=== PATIENT | female | born 1975 | race Caucasian/White ===

== ENCOUNTER 2016-09-08 12:55 | Emergency (ER) | payer BC | END 2016-09-08 14:50 | disposition left against medical advice (07) | LOC: UCCORT 12:55 | DX: R05 Cough (principal); J45.909 Unspecified asthma, uncomplicated; Z53.21 Procedure and treatment not carried out due to patient leaving prior to being seen by health care provider ==

== ENCOUNTER 2016-09-09 13:45 | Emergency (ER) | payer BC ==
[2016-09-09] MEDS ORDERED: Albuterol 2.5 MG/3 ML NEB.SOL* (0.083%) INH ONE (14:46)
--- NOTE | 2016-09-09 15:00 | UC ---
Respiratory Complaint HPI - HPI Summary HPI Summary: patient has hx of asthma. sinus symptoms, chest congestion and SOB. sore throat for 3 days as well. lip is tingling like a cold sore coming on - History of Current Complaint Chief Complaint: UCRespiratory Stated Complaint: UPPER RESPIRATORY Time Seen by Provider: 09/09/16 14:39 Hx Obtained From: Patient Hx Last Menstrual Period: 2003 ?: No Onset/Duration: Sudden Onset, Lasting Weeks Timing: Constant Severity Initially: Moderate Severity Currently: Severe Pain Intensity: 8 Pain Scale Used: 0-10 Numeric Character: Cough: Nonproductive Aggravating Factors: Exertion, Deep Breaths, Recumbent Position Alleviating Factors: Bronchodilator Associated Signs And Symptoms: Positive: Wheezing, URI, Sinus Discomfort - Allergies/Home Medications Allergies/Adverse Reactions: Allergies Allergy/AdvReac Type Severity Reaction Status Date / Time Erythromycin Allergy Mild Rash Verified 09/09/16 14:15 Penicillins Allergy Mild Rash Verified 09/09/16 14:15 Amoxicillin Allergy Rash Verified 09/09/16 14:15 Metronidazole [From Flagyl] Allergy SEVERE Verified 09/09/16 14:15 NAUSEA & VOMITING environmental Allergy Congestion Uncoded 09/09/16 14:16 LIQUID ADHESIVE Allergy Rash Uncoded 09/09/16 14:15 Home Medications: Home Medications Albuterol HFA INHALER* [Ventolin HFA Inhaler*] 2 puff INH SEE INSTRUCTIONS PRN 09/09/16 [History Confirmed 09/09/16] Fluticas/Salmet 230/21 HFA(NF) [Advair HFA 23O/21 (NF)] 2 puff INH BID 09/09/16 [History Confirmed 09/09/16] LevoCETirizine TAB (NF) [Xyzal TAB (NF)] 5 mg PO DAILY 09/09/16 [History Confirmed 09/09/16] PMH/Surg Hx/FS Hx/Imm Hx Previously Healthy: Yes Endocrine History Of: Reports: Thyroid Disease - thyroidectomy Denies: Diabetes Cardiovascular History Of: Denies: Cardiac Disorders, Hypertension, Pacemaker/ICD Respiratory History Of: Reports: Asthma Denies: COPD GI/ History Of: Denies: Ulcer, Renal Disease - Surgical History Surgical History: Yes Surgery Procedure, Year, and Place: hysterectomy. thyroidectomy- [facility]himotos. [facility]. BUNIONECTOMY- ALL HARD HUYNH REMOVED. GALLBLADDER. [facility] -EYE SURG - Family History Known Family History: Positive: Cardiac Disease, Hypertension, Diabetes - Social History Alcohol Use: Occasionally Alcohol Amount: few times a month Substance Use Type: None Smoking Status (MU): Never Smoked Tobacco - Immunization History Most Recent Influenza Vaccination: 04/2014 Most Recent Tetanus Shot: 2013 Review of Systems Constitutional: Negative Skin: Negative, Other - lip tingling Eyes: Negative ENT: Sore Throat, Nasal Discharge Respiratory: Shortness Of Breath, Cough Cardiovascular: Negative Gastrointestinal: Negative Genitourinary: Negative Motor: Negative Neurovascular: Negative Musculoskeletal: Negative Neurological: Negative Psychological: Negative All Other Systems Reviewed And Are Negative: Yes Physical Exam Triage Information Reviewed: Yes Appearance: Well-Nourished, Ill-Appearing, Pain Distress Vital Signs: Initial Vital Signs Temp 98.6 F 09/09/16 14:07 Pulse 91 09/09/16 14:07 Resp 22 09/09/16 14:07 BP 113/68 09/09/16 14:07 Pulse Ox 98 09/09/16 14:07 Vital Signs Reviewed: Yes Eye Exam: Normal Eyes: Positive: Conjunctiva Clear ENT: Positive: Pharyngeal erythema - with exudate, Nasal congestion, TMs normal Dental Exam: Normal Neck exam: Normal Neck: Positive: Supple, Nontender, No Lymphadenopathy Respiratory: Positive: Chest non-tender, No respiratory distress, No accessory muscle use, Stridor, Wheezing, Inspiration Cardiovascular Exam: Normal Cardiovascular: Positive: RRR, No Murmur, Pulses Normal Abdominal Exam: Normal Abdomen Description: Positive: Nontender, No Organomegaly, Soft Bowel Sounds: Positive: Present Musculoskeletal Exam: Normal Musculoskeletal: Positive: Strength Intact, ROM Intact, No Edema Neurological Exam: Normal Neurological: Positive: Alert, Muscle Tone Normal Psychological Exam: Normal Skin Exam: Normal UC Diagnostic Evaluation - Laboratory O2 Sat by Pulse Oximetry: 98 Respiratory Course/Dx - Course Course Of Treatment: hx obtained, exam performed, meds reviewed albuterol neb given with good results, prescriptions sent, strep test obtained and is negative. - Differential Dx/Diagnosis Differential Diagnosis/HQI/PQRI: Asthma, Bronchitis Provider Diagnoses: asthma. bronchitis Discharge - Discharge Plan Condition: Stable Disposition: HOME Prescriptions: predniSONE TAB* [Deltasone TAB*] 40 mg PO DAILY #10 tab Additional Instructions: take the medication as prescribed. FOllow up with any worsenign symptoms.
[2016-09-09 15:22] VITALS: BP 109/76
== END 2016-09-09 15:20 | disposition home or self-care (01) ==
LOC: UCCORT 13:45
DX: J45.909 Unspecified asthma, uncomplicated (principal); Z88.1 Allergy status to other antibiotic agents; Z88.0 Allergy status to penicillin; Z90.49 Acquired absence of other specified parts of digestive tract
CPT/HCPCS: 87651; 99212; G0463

== ENCOUNTER 2017-10-09 10:38 | Day surgery (SDC) | payer BC ==
[~2017-10-09 10:38] MED LIST: Buffered Lidocaine 0.9% SYRIN* 5 ML/SYR SYRINGE INTRADERM ONE; DiMENhydriNATE IV* 50 MG/ML VIAL IV PUSH PRN; Famotidine IV* 10 MG/ML 2 ML (20 mg) IV ONE; Morphine INJ* 2 MG/ML 1 ML CARPUJECT IV PRN; Naloxone* 0.4 MG/ML 1 ML VIAL IV PRN; PROCHLORPERAZINE INJ 5 MG/ML 2 ML VIAL IV PRN; fentaNYL* 50 MCG/ML 2 ML VIAL (100 MCG VIAL) IV PRN; oxyCODONE/Acetamin 5/325 MG* TAB PO PRN
[2017-10-09] MEDS ORDERED: Heparin VIAL(*) 5000 UNITS/ML VIAL (FIVE THOUSAND) ONE (11:06)
[2017-10-09] MEDS ORDERED: Famotidine IV* 10 MG/ML 2 ML (20 mg) ONE (11:06)
[2017-10-09] MEDS ORDERED: Clindamycin 900 MG IVPREMIX(* 900 MG/50 ML SDV IV ONE (11:06)
[2017-10-09] MEDS ORDERED: fentaNYL* 50 MCG/ML 2 ML VIAL (100 MCG VIAL) ONE (11:43)
[2017-10-09] MEDS ORDERED: Midazolam* 1 MG/ML 5 ML VIAL (5 MG) ONE (11:43)
[2017-10-09] MEDS ORDERED: Bupivacaine 0.25% SDV* 30 ML ONE (11:50)
[2017-10-09] MEDS ORDERED: Propofol* 10 MG/ML 20 ML BTL IV PUSH ONE (12:09)
[2017-10-09] MEDS ORDERED: Dexamethasone IV* 4 MG/ML 1 ML (4 MG) ONE ×2 (12:09→12:40)
[2017-10-09] MEDS ORDERED: Ketorolac INJ* 30 MG/ML 1 ML VIAL ONE (12:09)
[2017-10-09] MEDS ORDERED: Ondansetron INJ* 2 MG/ML VIAL ONE (12:09)
[2017-10-09 13:37] VITALS: BP 109/77
[2017-10-09] MEDS ORDERED: KETAMINE HCL* 50 MG/ML 10 ML VIAL ONE (13:44)
--- NOTE | 2017-10-10 11:10 | OP ---
DATE OF OPERATION: 10/09/17 - [facility] DATE OF : 71 SURGEON: Dada Rios DPM ANESTHESIA: MAC with local. PRE-OP DIAGNOSIS: Right foot lipoma. POST-OP DIAGNOSIS: Right foot lipoma. OPERATIVE PROCEDURE: Excision of right foot lipoma. ESTIMATED BLOOD LOSS: Less than 10 cc. IV FLUIDS: LR 1000 cc. DRAINS: None. SPECIMEN: Lipoma from the right foot. DESCRIPTION OF PROCEDURE: The patient was taken to the operating room and was placed in supine position. Time-out was called and OR team agreed. The right foot was then blocked with 10 cc of 1% lidocaine plain locally. The foot was then prepped and draped in a sterile manner. The right foot was then exsanguinated with an Esmarch bandage, and the cuff was then inflated to 250 mmHg. Attention was then paid to the medial aspect of the right foot. There was a 4 cm soft tissue mass that has been painful. It has been identified as the lipoma of the same size via MRI. I proceeded to make a linear incision right over the medial aspect of the arch. This was followed by sharp and blunt dissection of the skin and subcutaneous tissue. I was able to identify a 4 mm lipomatous mass right over the adductor hallucis muscle. It appears to be the plantar, most likely a soft tissue or a subcutaneous fat that has herniated into the medial vault pinching on the surrounding structures, namely the medial dorsal cutaneous as well as the saphenous cutaneous nerve as well as the overlying abductor hallucis muscle. I then proceeded to isolate the lipomatous mass and I excised it in its entirety. I proceeded to examine the area and found to be free of the soft tissue mass. Again, I irrigated the site , closed in a layered anatomical fashion. I deflated the cuff, injected the site with 10 cc of 0.25% Marcaine plain as well as 8 mg of dexamethasone phosphate. The foot was then placed in a dry sterile dressing. The patient was taken to recovery in stable condition as well as discharged in stable condition. [id number]/[facility] #: [id number] MTDFloyd
== END 2017-10-09 13:37 | disposition home or self-care (01) ==
LOC: OR 10:38
PROVIDERS: ATTEND Podiatrist
DX: D17.23 Benign lipomatous neoplasm of skin and subcutaneous tissue of right leg (principal); E03.9 Hypothyroidism, unspecified; J45.909 Unspecified asthma, uncomplicated
CPT/HCPCS: 88304; J1100; J1644; J1885; J2250; J2405; J2704; J3010

== ENCOUNTER 2018-03-04 19:41 | Emergency (ER) | payer BC ==
[2018-03-04 20:05] VITALS: BP 105/66
--- NOTE | 2018-03-04 20:21 | UC ---
Upper Extremity HPI - HPI Summary HPI Summary: Pain in left hand, increasing since a workout yesterday and today. Hx of osteopenia treated with calcium, and past fracture of the left fifth metacarpal. Now has ecchymosis and swelling ulnar border of wrist. - History of Current Complaint Chief Complaint: UCUpperExtremity Stated Complaint: LEFT HAND PAIN Time Seen by Provider: 03/04/18 20:12 Hx Obtained From: Patient Hx Last Menstrual Period: 2003 Onset/Duration: Sudden Onset, Lasting Days - 2 Severity Initially: Moderate Severity Currently: Moderate Pain Intensity: 4 Location Of Pain: Is Diffuse Character: Aching Aggravating Factor(s): Movement, Lifting Alleviating Factor(s): Ice Associated Signs And Symptoms: Positive: Swelling, Bruising Related History: Dominant Hand Right - Risk Factors Non-Orthopedic Risk Factor: Negative DVT Risk Factors: Negative Septic Arthritis Risk Factor: Negative - Allergies/Home Medications Allergies/Adverse Reactions: Allergies Allergy/AdvReac Type Severity Reaction Status Date / Time amoxicillin Allergy Rash Verified 03/04/18 19:56 erythromycin base Allergy Rash Verified 03/04/18 19:56 metronidazole [From Flagyl] Allergy severe n/v Verified 03/04/18 19:56 Penicillins Allergy Rash Verified 03/04/18 19:56 environmental Allergy Congestion Uncoded 03/04/18 19:56 LIQUID ADHESIVE Allergy Rash Uncoded 03/04/18 19:56 Home Medications: Home Medications Estradiol 1 tab QPM 03/04/18 [History Confirmed 03/04/18] Tiotropium CAP.INH* [Spiriva CAP.INH*] 1 inh QAM 03/04/18 [History Confirmed ] PMH/Surg Hx/FS Hx/Imm Hx Previously Healthy: Yes Endocrine History: Hypothyroidism, Other - osteopenia Other Endocrine History: osteopenia - Surgical History Surgical History: Yes Surgery Procedure, Year, and Place: hysterectomy, 2003, [facility] with emergency surgery for bleeding. thyroidectomy- hashimotos, 1995, [facility]. [facility]. BUNIONECTOMY- ALL HARD HUYNH REMOVED. GALLBLADDER, 2011, [facility]. lasik -EYE SURG, 2003. [place] foot, [facility] [place], [place]. LEFT hand 2 pins placed, [facility], 2016 - Family History Known Family History: Positive: Cardiac Disease, Hypertension, Diabetes, Other - osteoporosis - Social History Occupation: Employed Full-time Alcohol Use: Occasionally Alcohol Amount: 1-2 per week Substance Use Type: None Smoking Status (MU): Never Smoked Tobacco - Immunization History Most Recent Influenza Vaccination: 04/2014 Most Recent Tetanus Shot: 2013 Review of Systems Constitutional: Negative Skin: Negative Eyes: Negative ENT: Negative Respiratory: Negative Cardiovascular: Negative Gastrointestinal: Negative Genitourinary: Negative Motor: Negative Neurovascular: Negative Musculoskeletal: Arthralgia, Decreased ROM Neurological: Negative Psychological: Negative Is Patient Immunocompromised?: No All Other Systems Reviewed And Are Negative: Yes Physical Exam Triage Information Reviewed: Yes Appearance: Well-Appearing, Pain Distress - mild Vital Signs: Initial Vital Signs Temp 96.5 F 03/04/18 19:59 Pulse 75 03/04/18 19:59 Resp 16 03/04/18 19:59 BP 105/66 03/04/18 19:59 Pulse Ox 99 03/04/18 19:59 ENT Exam: Normal Respiratory: Positive: Lungs clear, Normal breath sounds Cardiovascular: Positive: RRR, No Murmur Musculoskeletal Exam: Other - erythema, mild swelling, early ecchymosis ulnar border of left wrist and hand. Musculoskeletal: Positive: ROM Limited @ - left wrist with decreased flexion and extension. Neurological: Positive: Alert, Muscle Tone Normal Psychological Exam: Normal Skin Exam: Normal Diagnostics - Laboratory Diagnostic Studies Completed/Ordered: xray left wrist with no fracture seen. Read by Aravind Greene, radiology read is pending. Upper Extremity Course/Dx - Course Course Of Treatment: splint, ice, nsaid's - Differential Dx/Diagnosis Differential Diagnosis/HQI/PQRI: Contusion, Fracture (Closed), Hematoma Provider Diagnoses: contusion/sprain left wrist. Discharge - Sign-Out/Discharge Documenting (check all that apply): Patient Departure All imaging exams completed and their final reports reviewed: No - Discharge Plan Condition: Stable Disposition: HOME Patient Education Materials: Wrist Sprain (ED) Referrals: Dedrick Louise MD [Primary Care Provider] - Additional Instructions: use splint for comfort, and ice the bruised area for 20 minutes about 3 times per day. Follow up with Dr. Louise for evaluation if pain continues as the bruising resolves, or if your range of motion is limited. - Billing Disposition and Condition Condition: STABLE Disposition: Home
--- NOTE | 2018-03-05 08:06 | RAD ---
HISTORY: pain and swelling ulnar border of wrist/hand COMPARISONS: May 14, 2016 VIEWS: 3 , Frontal, lateral, and oblique views of the left wrist FINDINGS: BONE DENSITY: Normal. BONES: There is no displaced fracture. 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 ALIGNMENT: There is no dislocation. SOFT TISSUES: Unremarkable. OTHER FINDINGS: None. IMPRESSION: NO ACUTE OSSEOUS INJURY. IF SYMPTOMS PERSIST, RECOMMEND REPEAT IMAGING. R0
--- NOTE | 2018-03-05 08:17 | UC ---
- Progress Note Progress Note: imaging reviewed no change Discharge - Sign-Out/Discharge Documenting (check all that apply): Post-Discharge Follow Up All imaging exams completed and their final reports reviewed: Yes - Discharge Plan Condition: Stable Disposition: HOME Patient Education Materials: Wrist Sprain (ED) Referrals: Dedrick Louise MD [Primary Care Provider] - Additional Instructions: use splint for comfort, and ice the bruised area for 20 minutes about 3 times per day. Follow up with Dr. Louise for evaluation if pain continues as the bruising resolves, or if your range of motion is limited. - Billing Disposition and Condition Condition: STABLE Disposition: Home
== END 2018-03-04 21:13 | disposition home or self-care (01) ==
LOC: UCCORT 19:41
DX: S60.212A Contusion of left wrist, initial encounter (principal); S63.502A Unspecified sprain of left wrist, initial encounter; X58.XXXA Exposure to other specified factors, initial encounter; Y93.9 Activity, unspecified; Y92.9 Unspecified place or not applicable; Z88.1 Allergy status to other antibiotic agents; Z88.0 Allergy status to penicillin
CPT/HCPCS: 99212; G0463

== ENCOUNTER 2018-05-21 16:38 | Emergency (ER) | payer BC ==
[2018-05-21 17:08] VITALS: BP 109/66
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
[2018-05-21] MEDS ORDERED: Ketorolac INJ* 60 MG/2 ML VIAL IM ONE (18:19)
== END 2018-05-21 18:36 | disposition home or self-care (01) ==
LOC: UCCORT 16:38
DX: S46.912A Strain of unspecified muscle, fascia and tendon at shoulder and upper arm level, left arm, initial encounter (principal); J45.909 Unspecified asthma, uncomplicated; Z88.0 Allergy status to penicillin; Z88.1 Allergy status to other antibiotic agents; Z88.8 Allergy status to other drugs, medicaments and biological substances; Z91.048 Other nonmedicinal substance allergy status; X50.0XXA Overexertion from strenuous movement or load, initial encounter; Y92.9 Unspecified place or not applicable
CPT/HCPCS: 96372; 99213; G0463; J1885

== ENCOUNTER 2019-04-10 13:41 | Emergency (ER) | payer BC ==
--- OUTSIDE RECORDS SUMMARY | 2019-04-10 14:49 | XMS REPORT | Continuity of Care Document ---
:1975 External Reference #:[id number] Author Name CARIE Ward Address [address] [place] [address] Care Team Providers Name Role Phone Dedrick Louise M.D. Care Team Information Coal Sampler [phone] Problems Active Problems Provider Date Uncomplicated moderate persistent CARIE Ward Onset: 01/21/2017 asthma Allergic rhinitis due to pollen CARIE Roman Onset: 2016 Allergic rhinitis due to animals CARIE Roman Onset: 2016 Moderate asthma Stacie Montero M.D. Onset: 07/15/2016 Toxic effect of venom of bees, Stacie Montero M.D. Onset: 07/15/2016 accidental (unintentional), initial encounter Allergic rhinitis Stacie Montero M.D. Onset: 07/15/2016 Social History Type Date Description Comments Sex Unknown ETOH Use Occasionally consumes alcohol ETOH Use Rarely consumes beer ETOH Use Occasionally consumes wine ETOH Use Occasionally consumes liquor Tobacco Use Start: Unknown Patient has never smoked Recreational Drug Use Denies Drug Use Recreational Drug Use Never Used Drugs Allergies, Adverse Reactions, Alerts Active Allergies Reaction Severity Comments Date Penicillin Urticaria 07/15/2016 Amoxicillin unknown reaction 07/15/2016 Erythromycin Urticaria 07/15/2016 Mastisol Urticaria, blisters 07/15/2016 Medications Active Medications SIG Qnty Indications Ordering Date Provider Auvi-Q use as directed. 4units J45.40 Isabela 11/06/2017 0.3mg/0.3ML Solution im. CARIE Daniels Auto-Inject Desloratadine 1 by mouth every 90tabs J45.40 Isabela 10/08/2017 5mg Tablets day CARIE Daniels Xolair Inject 1 Vial 3units Isabela 04/16/2017 150mg Solution Rec Under The Skin CARIE Daniels Every 4 Weeks Symbicort 2 inhalations 30.6gm Isabela 03/23/2017 160-4.5mcg/Act am&pm CARIE Daniels Aerosol Spiriva Respimat 2 puffs once 12gm J45.40 Isabela 03/20/2017 1.25mcg/Act daily CARIE Daniels Aerosol Albuterol Sulfate use every 4-6 75ml Isabela 02/11/2017 1.25mg/3ML hours as needed CARIE Daniels Nebulizer Pataday 1 drop both eyes 7.5ml J30.9 Isabela 07/15/2016 0.2% Solution as needed (CARIE Becker rxbin 823087, displayer merchandise ([id number]), rxpcn [facility], rxgrp: [id number], id: [id number] Proair HFA two inhalations 17gm Isabela 108(90Base) mcg/Act every 4 hours as CARIE Daniels Aerosol needed for cough, wheezing or chest tightness Hydrochlorothiazide as needed Unknown 25mg Tablets Estradiol take 1 tablet Unknown 0.5mg Tablets once daily Levothyroxine Sodium one tab daily Unknown 112mcg Tablets Medications Administered in Office Medication SIG Qnty Indications Ordering Provider Date Biologic Agent Administration CARIE Ward 02/17/2019 Injection Biologic Agent Administration CARIE Ward 01/14/2019 Injection Biologic Agent Administration CARIE Ward 12/16/2018 Injection Biologic Agent Administration CARIE Ward 11/19/2018 Injection Biologic Agent Administration Mariya Thurston M.D. 10/21/2018 Injection Biologic Agent Administration Isabela Uldrich, CENTRIFUGAL MACHINE TENDER-C 09/24/2018 Injection Biologic Agent Administration Isabela Uldrich, CENTRIFUGAL MACHINE TENDER-C 08/27/2018 Injection Biologic Agent Administration Isabela Uldrich, CENTRIFUGAL MACHINE TENDER-C 07/30/2018 Injection Biologic Agent Administration Isabela Uldrich, CENTRIFUGAL MACHINE TENDER-C 07/23/2018 Injection Biologic Agent Administration Isabela Uldrich, CENTRIFUGAL MACHINE TENDER-C 06/18/2018 Injection Biologic Agent Administration Isabela Uldrich, CENTRIFUGAL MACHINE TENDER-C 05/21/2018 Injection Biologic Agent Administration Isabela Uldrich, CENTRIFUGAL MACHINE TENDER-C 04/16/2018 Injection Biologic Agent Administration Stacie Montero M.D. 03/19/2018 Injection Biologic Agent Administration Isabela Uldrich, CENTRIFUGAL MACHINE TENDER-C 03/19/2018 Injection Biologic Agent Administration Isabela Uldrich, CENTRIFUGAL MACHINE TENDER-C 02/19/2018 Injection Biologic Agent Administration Isabela Uldrich, CENTRIFUGAL MACHINE TENDER-C 01/08/2018 Injection Biologic Agent Administration Isabela Uldrich, CENTRIFUGAL MACHINE TENDER-C 12/11/2017 Injection Biologic Agent Administration Isabela Uldrich, CENTRIFUGAL MACHINE TENDER-C 11/06/2017 Injection Biologic Agent Administration Isabela Uldrich, CENTRIFUGAL MACHINE TENDER-C 10/08/2017 Injection Biologic Agent Administration Mariya Thurston M.D. 09/10/2017 Injection Biologic Agent Administration Isabela Uldrich, CENTRIFUGAL MACHINE TENDER-C 08/14/2017 Injection Biologic Agent Administration Mariya Thurston M.D. 07/10/2017 Injection Biologic Agent Administration Stacie Montero M.D. 05/22/2017 Injection Biologic Agent Administration Isabela Uldrich, CENTRIFUGAL MACHINE TENDER-C 05/22/2017 Injection Injection Allergy Injection 03/04/2017 Injection Celestone/Cortisone Isabela Uldrich, CENTRIFUGAL MACHINE TENDER-C 01/21/2017 [id number] 1 cc Injection Injection Allergy Injection 01/21/2017 Injection Injection Allergy Injection 01/14/2017 Injection Injection Allergy Injection 01/07/2017 Injection Injection Allergy Injection 12/24/2016 Injection Injection Stacie Montero M.D. 12/17/2016 Injection Injection Allergy Injection 12/17/2016 Injection Injection Allergy Injection 12/10/2016 Injection Injection Allergy Injection 12/03/2016 Injection Injection Allergy Injection 11/19/2016 Injection Injection Allergy Injection 11/12/2016 Injection Injection Allergy Injection 11/05/2016 Injection Injection Allergy Injection 10/29/2016 Injection Immunizations CPT Code Status Date Vaccine Reaction Lot # 16831 Given Unknown Influenza Vaccine given on 03/2018 19434 Given Unknown Influenza Vaccine 60413 Given Unknown Influenza Vaccine 06398 Given Unknown Influenza Vaccine Vital Signs Date Vital Result Comment 02/17/2019 11:25am Height 68 inches 5'8" Weight 193.00 lb Weight 87.545 kg Respiratory Rate 18 /min Heart Rate 74 /min O2 % BldC Oximetry 97 % BP Systolic 120 mmHg BP Diastolic 80 mmHg Asthma Control Test 24 BMI (Body Mass Index) 29.3 kg/m2 01/14/2019 9:12am Height 68 inches 5'8" Weight 193.00 lb Weight 87.545 kg Respiratory Rate 16 /min Heart Rate 70 /min O2 % BldC Oximetry 96 % BP Systolic 93 mmHg BP Diastolic 60 mmHg BMI (Body Mass Index) 29.3 kg/m2 Results Description No Information Available Procedures Date Code Description Status 02/17/2019 22285 Biologic Agent Administration Completed 01/14/2019 59123 Biologic Agent Administration Completed 12/16/2018 07549 Biologic Agent Administration Completed 11/19/2018 03538 Biologic Agent Administration Completed 10/21/2018 67354 Biologic Agent Administration Completed 09/24/2018 34512 Biologic Agent Administration Completed 08/27/2018 29366 Biologic Agent Administration Completed 08/27/2018 14648 Nitric Oxide Gas Determination Completed Medical Devices Description No Information Available Encounters Description No Information Available Assessments Date Code Description Provider 02/17/2019 J45.40 Moderate persistent asthma, uncomplicated ANDREAS Ward-C 02/17/2019 J30.1 Allergic rhinitis due to pollen CARIE Ward 02/17/2019 J30.2 Other seasonal allergic rhinitis CARIE Ward 02/17/2019 J30.81 Allergic rhinitis due to animal (cat) (dog) CARIE Ward hair and dander 02/17/2019 J30.89 Other allergic rhinitis CARIE Ward 01/14/2019 J45.40 Moderate persistent asthma, uncomplicated Stacie Montero M.D. 01/14/2019 J45.40 Moderate persistent asthma, uncomplicated Isabela Ulich , CENTRIFUGAL MACHINE TENDER-C 01/14/2019 J30.1 Allergic rhinitis due to pollen Stacie Montero M.D. 01/14/2019 J30.1 Allergic rhinitis due to pollen Isabela Ulboni, CENTRIFUGAL MACHINE TENDER-C 01/14/2019 J30.2 Other seasonal allergic rhinitis Stacie Montero M.D. 01/14/2019 J30.2 Other seasonal allergic rhinitis Isabela Ulboni, CENTRIFUGAL MACHINE TENDER-C 01/14/2019 J30.81 Allergic rhinitis due to animal (cat) (dog) Stacie Montero M.D. hair and dander 01/14/2019 J30.81 Allergic rhinitis due to animal (cat) (dog) Isabela Frances, CENTRIFUGAL MACHINE TENDER-C hair and dander 01/14/2019 J30.89 Other allergic rhinitis Isabela Ulich, CENTRIFUGAL MACHINE TENDER-C 12/16/2018 J45.40 Moderate persistent asthma, uncomplicated Stacie Montero M.D. 12/16/2018 J45.40 Moderate persistent asthma, uncomplicated Stacie Montero M.D. 12/16/2018 J30.1 Allergic rhinitis due to pollen Stacie Montero M.D. 12/16/2018 J45.40 Moderate persistent asthma, uncomplicated Isabelaaugusta Daniels , CENTRIFUGAL MACHINE TENDER-C 12/16/2018 J30.2 Other seasonal allergic rhinitis Stacie Montero M.D. 12/16/2018 J30.1 Allergic rhinitis due to pollen Stacie Montero M.D. 12/16/2018 J30.81 Allergic rhinitis due to animal (cat) (dog) Stacie Montero M.D. hair and dander 12/16/2018 J30.1 Allergic rhinitis due to pollen Isabela Daniels, CENTRIFUGAL MACHINE TENDER-C 12/16/2018 J30.2 Other seasonal allergic rhinitis Isabela Frances, CENTRIFUGAL MACHINE TENDER-C 12/16/2018 J30.81 Allergic rhinitis due to animal (cat) (dog) Stacie Montero M.D. hair and dander 12/16/2018 J30.81 Allergic rhinitis due to animal (cat) (dog) Isabela Uldrich, CENTRIFUGAL MACHINE TENDER-C hair and dander 12/16/2018 J30.89 Other allergic rhinitis Isabela Uldrich, CENTRIFUGAL MACHINE TENDER-C 11/19/2018 J45.40 Moderate persistent asthma, uncomplicated Stacie Montero M.D. 11/19/2018 J45.40 Moderate persistent asthma, uncomplicated Isabela Uldrich , CENTRIFUGAL MACHINE TENDER-C 11/19/2018 J30.1 Allergic rhinitis due to pollen Stacie Montero M.D. 11/19/2018 J30.1 Allergic rhinitis due to pollen Isabela Uldrich, CENTRIFUGAL MACHINE TENDER-C 11/19/2018 J30.2 Other seasonal allergic rhinitis Stacie Montero M.D. 11/19/2018 J30.2 Other seasonal allergic rhinitis Isabela Uldrich, CENTRIFUGAL MACHINE TENDER-C 11/19/2018 J30.81 Allergic rhinitis due to animal (cat) (dog) Stacie Montero M.D. hair and dander 11/19/2018 J30.81 Allergic rhinitis due to animal (cat) (dog) Isabela Uldrich, CENTRIFUGAL MACHINE TENDER-C hair and dander 11/19/2018 J30.89 Other allergic rhinitis Isabela Uldrich, CENTRIFUGAL MACHINE TENDER-C 11/19/2018 J01.90 Acute sinusitis, unspecified Isabela Uldrich, CENTRIFUGAL MACHINE TENDER-C 10/21/2018 J45.40 Moderate persistent asthma, uncomplicated Mariya Thurston M.D. 10/21/2018 J30.1 Allergic rhinitis due to pollen Mariya Thurston M.D. 10/21/2018 J30.2 Other seasonal allergic rhinitis Mariya Thurston M.D. 09/24/2018 J30.81 Allergic rhinitis due to animal (cat) (dog) Stacie Montero M.D. hair and dander 09/24/2018 J30.81 Allergic rhinitis due to animal (cat) (dog) Isabela Uldrjohanny, CENTRIFUGAL MACHINE TENDER-C hair and dander 09/24/2018 J30.89 Other allergic rhinitis Stacie Montero M.D. 09/24/2018 J30.89 Other allergic rhinitis Isabela Uldrich, CENTRIFUGAL MACHINE TENDER-C 09/24/2018 J30.1 Allergic rhinitis due to pollen Stacie Montero M.D. 09/24/2018 J30.1 Allergic rhinitis due to pollen Isabela Uldrich, CENTRIFUGAL MACHINE TENDER-C 09/24/2018 J30.2 Other seasonal allergic rhinitis Stacie Montero M.D. 09/24/2018 J30.2 Other seasonal allergic rhinitis Isabela Uldrich, CENTRIFUGAL MACHINE TENDER-C 09/24/2018 J45.40 Moderate persistent asthma, uncomplicated Isabela Uldrich , CENTRIFUGAL MACHINE TENDER-C 08/27/2018 J01.90 Acute sinusitis, unspecified Stacie Montero M.D. 08/27/2018 J01.90 Acute sinusitis, unspecified Isabela Uldrich, CENTRIFUGAL MACHINE TENDER-C 08/27/2018 J30.81 Allergic rhinitis due to animal (cat) (dog) Stacie Montero M.D. hair and dander 08/27/2018 J30.81 Allergic rhinitis due to animal (cat) (dog) Isabela Uldrich, CENTRIFUGAL MACHINE TENDER-C hair and dander 08/27/2018 J30.89 Other allergic rhinitis Stacie Montero M.D. 08/27/2018 J30.89 Other allergic rhinitis Isabela Uldrich, CENTRIFUGAL MACHINE TENDER-C 08/27/2018 J30.1 Allergic rhinitis due to pollen Stacie Montero M.D. 08/27/2018 J30.1 Allergic rhinitis due to pollen Isabela Uldrich, CENTRIFUGAL MACHINE TENDER-C 08/27/2018 J30.2 Other seasonal allergic rhinitis Isabela Uldrich, CENTRIFUGAL MACHINE TENDER-C 08/27/2018 J45.40 Moderate persistent asthma, uncomplicated Isabela Uldrich , CENTRIFUGAL MACHINE TENDER-C Plan of Treatment Future Appointment(s):03/17/2019 3:00 pm - Mariya Thurston M.D. at [id number] - Isabelavalentina Daniels CENTRIFUGAL MACHINE TENDER-CJ45.40 Moderate persistent asthma, hnajohqbmdrnjN65.1 Allergic rhinitis due to vhbxtcV35.2 Other seasonal allergic vaxbbsizD46.81 Allergic rhinitis due to animal (cat) (dog) hair and dfxglwE85.89 Other allergic rhinitisRecommendations:Continue all medications as prescribed.Refrain from wearing perfumes/scented colognes while visitingour office. Continue the desloratadine 1 po daily. Ok for Xolair continue the Symbicort 2 puffs twice daily Continue the Spiriva 1 puff daily Xolair ( Omalizumab) is a recombinant humanized monoclonal antibody that inhibits the binding of circulating IgE to the high affinity IgE receptor on the surface of mast cells and basophils. Reduction in surface-bound IgE on the IgE receptor expressing cells limits the release of mediators in the allergic response. Xolair is indicated for patients with moderate-severe persistent asthma who have a positive skin test result to a perennial aeroallergen and whose symptoms are inadequately controlled with inhaled corticosteroids. Return in 4 weeks Functional Status Description No Information Available Mental Status Description No Information Available Referrals Description No Information Available
--- OUTSIDE RECORDS SUMMARY | 2019-04-10 14:49 | XMS REPORT | Continuity of Care Document ---
:1975 External Reference #:[id number] Author Name CARIE Ward Address [address] [place] [address] Care Team Providers Name Role Phone Dedrick Louise M.D. Care Team Information Fisheries Biologist [phone] Problems Active Problems Provider Date Uncomplicated moderate [...] 0.2% Solution as needed (CARIE Becker rxbin [id number], seed laboratory technician ([id number]), rxpc[facility], rxgrp: [id number], id: [id number] Proair HFA two inhalations 17gm Isabela 108(90Base) [...] 10/21/2018 Injection Biologic Agent Administration Isabela Uldrich, BUSINESS TEAM LEADER-C 09/24/2018 Injection Biologic Agent Administration Isabela Uldrich, BUSINESS TEAM LEADER-C 08/27/2018 Injection Biologic Agent Administration Isabela Uldrich, BUSINESS TEAM LEADER-C 07/30/2018 Injection Biologic Agent Administration Isabela Uldrich, BUSINESS TEAM LEADER-C 07/23/2018 Injection Biologic Agent Administration Isabela Uldrich, BUSINESS TEAM LEADER-C 06/18/2018 Injection Biologic Agent Administration Isabela Uldrich, BUSINESS TEAM LEADER-C 05/21/2018 Injection Biologic Agent Administration Isabela Uldrich, BUSINESS TEAM LEADER-C 04/16/2018 Injection Biologic Agent Administration Stacie Montero M.D. 03/19/2018 Injection Biologic Agent Administration Isabela Uldrich, BUSINESS TEAM LEADER-C 03/19/2018 Injection Biologic Agent Administration Isabela Uldrich, BUSINESS TEAM LEADER-C 02/19/2018 Injection Biologic Agent Administration Isabela Uldrich, BUSINESS TEAM LEADER-C 01/08/2018 Injection Biologic Agent Administration Isabela Uldrich, BUSINESS TEAM LEADER-C 12/11/2017 Injection Biologic Agent Administration Isabela Uldrich, BUSINESS TEAM LEADER-C 11/06/2017 Injection Biologic Agent Administration Isabela Uldrich, BUSINESS TEAM LEADER-C 10/08/2017 Injection Biologic Agent Administration Mariya Thurston M.D. 09/10/2017 Injection Biologic Agent Administration Isabela Uldrich, BUSINESS TEAM LEADER-C 08/14/2017 Injection Biologic Agent Administration Mariya Thurston M.D. 07/10/2017 Injection Biologic Agent Administration Stacie Montero M.D. 05/22/2017 Injection Biologic Agent Administration Isabela Uldrich, BUSINESS TEAM LEADER-C 05/22/2017 Injection Injection Allergy Injection 03/04/2017 Injection Celestone/Cortisone Isabela Uldrich, BUSINESS TEAM LEADER-C 01/21/2017 [id number] 1 cc Injection Injection Allergy Injection 01/21/2017 [...] Code Status Date Vaccine Reaction Lot # 83073 Given Unknown Influenza Vaccine given on 03/2018 75522 Given Unknown Influenza Vaccine 49333 Given Unknown Influenza Vaccine 03520 Given Unknown Influenza Vaccine Vital Signs Date Vital Result Comment 03/17/2019 2:56pm Height 68 inches 5'8" Respiratory Rate 18 /min Heart Rate 69 /min O2 % BldC Oximetry 95 % BP Systolic 109 mmHg BP Diastolic 66 mmHg Asthma Control Test 18 02/17/2019 11:25am Height 68 inches 5'8" Weight 193.00 lb Weight 87.545 kg Respiratory Rate 18 /min Heart Rate 74 /min O2 % BldC Oximetry 97 % BP Systolic 120 mmHg BP Diastolic 80 mmHg Asthma Control Test 24 BMI (Body Mass Index) 29.3 kg/m2 Results Description No Information Available Procedures Date Code Description Status 02/17/2019 32072 Biologic Agent Administration Completed 01/14/2019 30978 Biologic Agent Administration Completed 12/16/2018 79046 Biologic Agent Administration Completed 11/19/2018 74071 Biologic Agent Administration Completed 10/21/2018 07314 Biologic Agent Administration Completed 09/24/2018 60155 Biologic Agent Administration Completed Medical Devices Description No Information Available Encounters Description No Information Available Assessments Date Code Description Provider 03/17/2019 J45.40 Moderate persistent asthma, uncomplicated Isabela Daniels BUSINESS TEAM LEADER-C 03/17/2019 J30.1 Allergic rhinitis due to pollen Isabela Daniels BUSINESS TEAM LEADER-C 03/17/2019 J30.2 Other seasonal allergic rhinitis Isabela Daniels BUSINESS TEAM LEADER-C 03/17/2019 J30.81 Allergic rhinitis due to animal (cat) (dog) Isabela Daniels [facility] hair and dander 03/17/2019 J30.89 Other allergic rhinitis Isabela Daniels BUSINESS TEAM LEADER-C 02/17/2019 J45.40 Moderate persistent asthma, uncomplicated Stacie Montero M.D. 02/17/2019 J45.40 Moderate persistent asthma, uncomplicated Isabelaaugusta Daniels BUSINESS TEAM LEADER-C 02/17/2019 J30.1 Allergic rhinitis due to pollen Stacie Montero M.D. 02/17/2019 J30.1 Allergic rhinitis due to pollen Isabela Ulboni, BUSINESS TEAM LEADER-C 02/17/2019 J30.2 Other seasonal allergic rhinitis Stacie Montero M.D. 02/17/2019 J30.2 Other seasonal allergic rhinitis Isabela Uldrich, BUSINESS TEAM LEADER-C 02/17/2019 J30.81 Allergic rhinitis due to animal (cat) (dog) Stacie Montero M.D. hair and dander 02/17/2019 J30.81 Allergic rhinitis due to animal (cat) (dog) Isabela Uldrich, BUSINESS TEAM LEADER-C hair and dander 02/17/2019 J30.89 Other allergic rhinitis Stacie Montero M.D. 02/17/2019 J30.89 Other allergic rhinitis Isabela Uldrich, BUSINESS TEAM LEADER-C 01/14/2019 J45.40 Moderate persistent asthma, uncomplicated Stacie Montero M.D. 01/14/2019 J45.40 Moderate persistent asthma, uncomplicated Isabela Ulich , BUSINESS TEAM LEADER-C 01/14/2019 J30.1 Allergic rhinitis due to pollen Stacie Montero M.D. 01/14/2019 J30.1 Allergic rhinitis due to pollen Isabela Ulich, BUSINESS TEAM LEADER-C 01/14/2019 J30.2 Other seasonal allergic rhinitis Stacie Montero M.D. 01/14/2019 J30.2 Other seasonal allergic rhinitis Isabela Uldrich, BUSINESS TEAM LEADER-C 01/14/2019 J30.81 Allergic rhinitis due to animal (cat) (dog) Stacie Montero M.D. hair and dander 01/14/2019 J30.81 Allergic rhinitis due to animal (cat) (dog) Isabela Uldrich, BUSINESS TEAM LEADER-C hair and dander 01/14/2019 J30.89 Other allergic rhinitis Isabela Uldrich, BUSINESS TEAM LEADER-C 12/16/2018 J45.40 Moderate persistent asthma, uncomplicated Stacie Montero M.D. 12/16/2018 J45.40 Moderate persistent asthma, uncomplicated Stacie Montero M.D. 12/16/2018 J30.1 Allergic rhinitis due to pollen Stacie Montero M.D. 12/16/2018 J45.40 Moderate persistent asthma, uncomplicated Isabela Uldrich , BUSINESS TEAM LEADER-C 12/16/2018 J30.2 Other seasonal allergic rhinitis Stacie Montero M.D. 12/16/2018 J30.1 Allergic rhinitis due to pollen Stacie Montero M.D. 12/16/2018 J30.81 Allergic rhinitis due to animal (cat) (dog) Stacie Montero M.D. hair and dander 12/16/2018 J30.1 Allergic rhinitis due to pollen Isabela Uldrich, BUSINESS TEAM LEADER-C 12/16/2018 J30.2 Other seasonal allergic rhinitis Isabela Uldrich, BUSINESS TEAM LEADER-C 12/16/2018 J30.81 Allergic rhinitis due to animal (cat) (dog) Stacie Montero M.D. hair and dander 12/16/2018 J30.81 Allergic rhinitis due to animal (cat) (dog) Isabela Uldrich, BUSINESS TEAM LEADER-C hair and dander 12/16/2018 J30.89 Other allergic rhinitis Isabela Uldrich, BUSINESS TEAM LEADER-C 11/19/2018 J45.40 Moderate persistent asthma, uncomplicated Stacie Montero M.D. 11/19/2018 J45.40 Moderate persistent asthma, uncomplicated Isabela Uldrich , BUSINESS TEAM LEADER-C 11/19/2018 J30.1 Allergic rhinitis due to pollen Stacie Montero M.D. 11/19/2018 J30.1 Allergic rhinitis due to pollen Isabela Uldrich, BUSINESS TEAM LEADER-C 11/19/2018 J30.2 Other seasonal allergic rhinitis Stacie Montero M.D. 11/19/2018 J30.2 Other seasonal allergic rhinitis Isabela Uldrich, BUSINESS TEAM LEADER-C 11/19/2018 J30.81 Allergic rhinitis due to animal (cat) (dog) Stacie Montero M.D. hair and dander 11/19/2018 J30.81 Allergic rhinitis due to animal (cat) (dog) Isabela Uldrich, BUSINESS TEAM LEADER-C hair and dander 11/19/2018 J30.89 Other allergic rhinitis Isabela Uldrjohanny, BUSINESS TEAM LEADER-C 11/19/2018 J01.90 Acute sinusitis, unspecified Isabela Uldrich, BUSINESS TEAM LEADER-C 10/21/2018 J45.40 Moderate persistent asthma, uncomplicated Mariya Thurston M.D. 10/21/2018 J30.1 Allergic rhinitis due to pollen Mariya Thurston M.D. 10/21/2018 J30.2 Other seasonal allergic rhinitis Mariya Thurston M.D. 09/24/2018 J30.81 Allergic rhinitis due to animal (cat) (dog) Stacie Montero M.D. hair and dander 09/24/2018 J30.81 Allergic rhinitis due to animal (cat) (dog) Isabelavalentina Daniels BUSINESS TEAM LEADER-C hair and dander 09/24/2018 J30.89 Other allergic rhinitis Stacie Montero M.D. 09/24/2018 J30.89 Other allergic rhinitis Isabela Ulich, BUSINESS TEAM LEADER-C 09/24/2018 J30.1 Allergic rhinitis due to pollen Stacie Montero M.D. 09/24/2018 J30.1 Allergic rhinitis due to pollen Isabela Frances, BUSINESS TEAM LEADER-C 09/24/2018 J30.2 Other seasonal allergic rhinitis Stacie Montero M.D. 09/24/2018 J30.2 Other seasonal allergic rhinitis Isabela Frances, BUSINESS TEAM LEADER-C 09/24/2018 J45.40 Moderate persistent asthma, uncomplicated Isabela Uldrich , BUSINESS TEAM LEADER-C Plan of Treatment No Information Available Functional Status Description No Information Available Mental Status Description No Information Available Referrals Description No Information Available
[2019-04-10 15:06] VITALS: BP 99/69
--- NOTE | 2019-04-10 15:10 | UC ---
Respiratory Complaint HPI - HPI Summary HPI Summary: Patient is43 year old female , who present today to the urgent care with upper respiratory symptoms for past days. She states she had a sore throat last week, nasal congestion that has moved to her chest. Also has runny nose, cough and when she bends over, she has increased pressure in her head. Cough productive of greenish sputum, PND + No sick contacts . No skin rash. Denies any fever, chest pain or shortness of breath .Denies any abdominal pain , nausea or vomiting , diarrhea or constipation. She has a history of asthma, on symbicort . Gets Xolair treatment and worried that if she has congestion/ symptoms she will not get it . - History of Current Complaint Chief Complaint: UCRespiratory Stated Complaint: CHEST/SINUS CONGESTION Time Seen by Provider: 04/10/19 15:07 Hx Obtained From: Patient Hx Last Menstrual Period: 2003 Pain Intensity: 6 - Allergies/Home Medications Allergies/Adverse Reactions: Allergies Allergy/AdvReac Type Severity Reaction Status Date / Time amoxicillin Allergy Rash Verified 04/10/19 15:06 erythromycin base Allergy Rash Verified 04/10/19 15:06 metronidazole [From Flagyl] Allergy severe n/v Verified 04/10/19 15:06 Penicillins Allergy Rash Verified 04/10/19 15:06 environmental Allergy Congestion Uncoded 04/10/19 15:06 LIQUID ADHESIVE Allergy Rash Uncoded 04/10/19 15:06 PMH/Surg Hx/FS Hx/Imm Hx - Additional Past Medical History Additional PMH: Past Medical History : Asthma, thyroid, seasonal allergies. Past Surgical History: hysterectomy, 2003, [facility] with emergency surgery for bleeding thyroidectomy- hashimotos, 1995, [facility] [place]. BUNIONECTOMY- ALL HARD HUYNH REMOVED GALLBLADDER, 2011, [facility] lasik -EYE SURG, 2003 Family History : non contributory Social History : Occasional alcohol, non smoker, no drug use. Previously Healthy: Yes - Surgical History Surgical History: Yes Surgery Procedure, Year, and Place: hysterectomy, 2003, [facility] with emergency surgery for bleeding. thyroidectomy- hashimotos, 1995, [facility]. [place]. BUNIONECTOMY- ALL HARD HUYNH REMOVED. GALLBLADDER, 2011, [facility]. lasik -EYE SURG, 2003. left foot TARSAL TUNNEL RE[place] [facility] [facility] [place]. [place] hand 2 pins placed, [facility], 2016 - Family History Known Family History: Positive: Cardiac Disease, Hypertension, Diabetes, Other - osteoporosis, Non-Contributory - Social History Alcohol Use: Weekly Alcohol Amount: 1-2 per week Substance Use Type: None Smoking Status (MU): Never Smoked Tobacco - Immunization History Most Recent Influenza Vaccination: 04/2014 Most Recent Tetanus Shot: 2013 Review of Systems All Other Systems Reviewed And Are Negative: Yes Constitutional: Positive: Negative Skin: Positive: Negative Eyes: Positive: Negative ENT: Positive: Sore Throat, Nasal Discharge, Sinus Congestion, Sinus Pain/ Tenderness. Negative: Ear Ache Respiratory: Positive: Cough - productive Cardiovascular: Positive: Negative Gastrointestinal: Positive: Negative Genitourinary: Positive: Negative Motor: Positive: Negative, Decreased ROM Neurological: Positive: Negative Psychological: Positive: Negative Is Patient Immunocompromised?: No Physical Exam - Summary Physical Exam Summary: Const: Appears well. No signs of apparent distress present. Alert and oriented x 3. Musculo: Walks with a normal gait. Head/Face: Atraumatic, normocephalic on inspection. Eyes: EOMI and PERRLA in both eyes. Conjunctivae clear. No discharge noted ENT: Hearing normal, TM normal appearing bilaterally tjhere is tenderness to palpation on maxillary and frontal sinus. mild pharyngeal erythema, no exudates or PND . Uvula is midline. There is anterior cervical lymphadenopathy noted. Respiratory: Respirations are unlabored. Lungs clear to auscultation bilaterally, no wheezing , rhonchi or rales noted . CVS: Regular rate and Rhythm, S1S2 normal , no murmurs identified. Extremities: Peripheral circulation is grossly normal. Pulses 2+ Abdomen : Soft non tender , nondistended , Bowel sounds present . No guarding , rebound tenderness or rigidity noted. Skin: No lesions or rash located on the upper extremities or on the lower extremities. Neuro: Cranial nerves II to XII intact, motor and sensory intact. DTR Intact bilaterally. Mood is normal. Affect is normal. Triage Information Reviewed: Yes Vital Signs: Initial Vital Signs Temp 97.6 F 04/10/19 15:02 Pulse 69 04/10/19 15:02 Resp 18 04/10/19 15:02 BP 99/69 04/10/19 15:02 Pulse Ox 98 04/10/19 15:02 Vital Signs Reviewed: Yes Respiratory Course/Dx - Course Course Of Treatment: During the visit today, we discussed the findings and further plan. It can be viral but her symptoms getting worse and since, she has a history of asthma, on symbicort and gets Xolair treatment and worried that if she has congestion/ symptoms she will not get it , I will prescribe the antibiotic to the pharmacy . She is allergic to erythromycin but has had azithromycin in past without any problem . Patient expressed understanding . - Differential Dx/Diagnosis Provider Diagnosis: Pharyngitis, Sinusitis Discharge ED - Sign-Out/Discharge Documenting (check all that apply): Patient Departure All imaging exams completed and their final reports reviewed: No Studies - Discharge Plan Condition: Stable Disposition: HOME Prescriptions: Azithromyxin LARISSA (NF) [Z-Larissa (Zithromax) 250 mg tabs #6] 2 tab PO .TODAY, THEN 1 DAILY #6 tab predniSONE [Prednisone 20 MG TAB] 60 mg PO DAILY 5 Days #15 tablet Patient Education Materials: Sinusitis (ED) Referrals: Dedrick Louise MD [Primary Care Provider] - If Needed Additional Instructions: Please start taking the medication as prescribed to the pharmacy . Follow up with your primary care doctor in1 week if needed Return to Urgent care / ER if symptoms get worse. - Billing Disposition and Condition Condition: STABLE Disposition: Home
== END 2019-04-10 15:25 | disposition home or self-care (01) ==
LOC: UCCORT 13:41
DX: J02.9 Acute pharyngitis, unspecified (principal); J32.9 Chronic sinusitis, unspecified; J45.909 Unspecified asthma, uncomplicated; Z88.0 Allergy status to penicillin; Z88.1 Allergy status to other antibiotic agents; Z91.09 Other allergy status, other than to drugs and biological substances; Z79.899 Other long term (current) drug therapy
CPT/HCPCS: 99212; G0463